=== PATIENT | male | born 1990 | race African-American/Black ===

== ENCOUNTER 2024-09-11 10:39 | Emergency (ER) | payer SELFPAY ==
[2024-09-11 12:25] VITALS: BP 111/74; PULSE 78
== END 2024-09-11 12:24 | disposition home or self-care (01) ==
LOC: MW.ED 10:39
DX: M94.0 Chondrocostal junction syndrome [Tietze] (principal); J45.909 Unspecified asthma, uncomplicated; Z75.3 Unavailability and inaccessibility of health-care facilities
CPT/HCPCS: 71046; 99284; A9270